=== PATIENT | female | born 1980 | race Caucasian/White ===

== ENCOUNTER 2017-01-20 03:22 | Emergency (ER) | payer BC ==
[2017-01-20] MEDS ORDERED: NORMAL SALINE 1000 ML 1,000 ML IV ONE ×2 (04:22→05:47)
[2017-01-20] MEDS ORDERED: ONDANSETRON HCL INJ/PF 4 MG/2 ML SDV IV ONE (04:22)
[2017-01-20] MEDS ORDERED: CLONIDINE 0.1 MG/24 HR PATCH.TDWK TD ONE (04:23)
--- NOTE | 2017-01-20 04:28 | ER Document Report ---
ED Psych Disorder / Suicide - General Chief Complaint: Psych Problem Stated Complaint: REQUEST DETOX Time Seen by Provider: 01/20/17 04:02 Mode of Arrival: Ambulatory Information source: Patient TRAVEL OUTSIDE OF THE [place] IN LAST 30 DAYS: No - HPI Notes: 36-year-old female who presents stating she is withdrawing from Percocet/ methadone. States she had been originally on Percocet for chronic back issues. She states she detoxed in [place] off this but walked out and did not complete the outpatient portion. She had been placed on methadone but has not had any since 4 or 5 days ago. She did use some Phenergan for nausea which helps slightly and she is almost out as well. She had been on a Catapres patch 0.1 mg from what it sounds like but this has been taken off as it has been old. She reports hot and cold sensation nausea clammy feeling and generalized pain. She has seen port but has not seen a physician yet for medication treatment. Denies any specific new symptoms otherwise. No suicidal ideation. No auditory or visual hallucinations. She does have generalized weakness and fatigue. No specific pain itself, more generalized. - Related Data Allergies/Adverse Reactions: Penicillins Allergy (Verified 01/20/17 03:26) Past Medical History - Social History Smoking Status: Current Every Day Smoker Frequency of alcohol use: Rare Drug Abuse: Prescription drugs Family History: Reviewed & Not Pertinent Patient has suicidal ideation: No Patient has homicidal ideation: No - Past Medical History Cardiac Medical History: Reports: Hx Hypercholesterolemia Renal/ Medical History: Denies: Hx Peritoneal Dialysis Other: Autoimmune disorder Past Surgical History: Reports: Hx Section - Immunizations Hx Diphtheria, Pertussis, Tetanus Vaccination: No Hx Pneumococcal Vaccination: 10/25/11 Review of Systems - Review of Systems -: Yes All other systems reviewed and negative Physical Exam - Vital signs Vitals: Temp Pulse Resp BP Pulse Ox 98.7 F 102 H 18 135/93 H 97 01/20/17 03:27 01/20/17 03:27 01/20/17 03:27 01/20/17 03:27 01/20/17 03:27 - Notes Notes: GENERAL: VS as per nursing doc. Well-appearing, well-nourished and in no acute distress. HEAD: Atraumatic, normocephalic EYES: Pupils equal round and reactive to light, extraocular movements intact, sclera anicteric, no conjunctival injection or discharge. ENT: Nares patent, oropharynx clear without exudates, slightly dry mucous membranes. NECK: Normal range of motion, supple without lymphadenopathy. LUNGS: Breath sounds clear to auscultation bilaterally and equal. No wheezes rales or rhonchi. HEART: Regular rate and rhythm without murmurs. Peripheral pulses equal. ABDOMEN: Soft, non-tender. BACK: Normal to inspection EXTREMITIES: Normal appearance without edema. NEUROLOGICAL: Cranial nerves grossly intact. Normal speech. Normal sensory and motor exams. No gross cerebellar abnormalities. PSYCH: Oriented 3. Calm, directable. No evidence of hallucinations or delusions. No reported suicidal or homicidal ideation. Normal thought content. Good insight. Speech is appropriate. SKIN: Slightly cool and moist no lacerations. Course - Vital Signs Vital signs: Temp Pulse Resp BP Pulse Ox 98.7 F 102 H 18 135/93 H 97 01/20/17 03:27 01/20/17 03:27 01/20/17 03:27 01/20/17 03:27 01/20/17 03:27
[2017-01-20 05:04] LABS: ABSOLUTE BASOPHILS # (AUTO) 0.1 10^3/uL (0.0-0.2); ABSOLUTE EOSINOPHILS # (AUTO) 0.1 10^3/uL (0.0-0.6); ABSOLUTE LYMPHOCYTES (AUTO) 2.4 10^3/uL (0.5-4.7); ABSOLUTE NEUT (AUTO) 9.6 10^3/uL (1.7-8.2); BASOPHILS % (AUTO) 0.5 % (0-2); EOSINOPHILS % (AUTO) 0.7 % (0-6); HEMATOCRIT 42.1 % (36.0-47.0); HEMOGLOBIN 14.1 g/dL (12.0-15.5); HGB HCT DIFFERENCE 0.2; LYMPHOCYTES % (AUTO) 18.3 % (13-45); MEAN CORPUSCULAR HEMOGLOBIN 31.1 pg (27.0-33.4); MEAN CORPUSCULAR HGB CONC 33.4 g/dL (32.0-36.0); MEAN CORPUSCULAR VOLUME 93 fl (80-97); MONOCYTES % (AUTO) 7.3 % (3-13); RED BLOOD COUNT 4.53 10^6/uL (3.72-5.28); RED CELL DISTRIBUTION WIDTH 13.9 % (11.5-14.0); SEGMENTED NEUTROPHILS % (AUTO) 73.2 % (42-78); WHITE BLOOD COUNT 13.1 10^3/uL (4.0-10.5)
[2017-01-20 05:17] LABS: ANION GAP 15 (5-19); BLOOD UREA NITROGEN 10 mg/dL (7-20); CALCIUM 9.5 mg/dL (8.4-10.2); CARBON DIOXIDE 26 mmol/L (22-30); CHLORIDE 106 mmol/L (98-107); CREATININE RESULT 0.61 mg/dL (0.52-1.25); GLUCOSE 109 mg/dL (75-110); SODIUM 146.8 mmol/L (137-145)
[2017-01-20 06:02] LABS: APPEARANCE,URINE CLOUDY; BILIRUBIN,URINE SMALL (NEGATIVE); CALCIUM OXALATE CRYSTALS,URINE MANY /HPF; GLUCOSE, URINE NEGATIVE (NEGATIVE); KETONES,URINE TRACE mg/dL (NEGATIVE); LEUKOCYTE ESTERASE,URINE TRACE (NEGATIVE); NITRITE,URINE NEGATIVE (NEGATIVE); PROTEIN,URINE 100 mg/dL (NEGATIVE); URINE SPECIFIC GRAVITY 1.029
[2017-01-20] MEDS ORDERED: NITROFURANTOIN MONOHYD/M-CRYST 100 MG CAPSULE PO ONE (06:08)
[2017-01-20 06:18] VITALS: BP 141/94
== END 2017-01-20 06:40 | disposition home or self-care (01) ==
LOC: ER 03:22
DX: F11.23 Opioid dependence with withdrawal (principal); N39.0 Urinary tract infection, site not specified; R11.0 Nausea; R53.1 Weakness; R53.83 Other fatigue; F17.200 Nicotine dependence, unspecified, uncomplicated
CPT/HCPCS: 99284; 96361; 96374; 36415; 85025; 81025; 80048; 81001; J2405; J7030; J3490; J8499

== ENCOUNTER 2018-03-19 13:42 | Emergency (ER) | payer BC ==
[2018-03-19 13:51] VITALS: BP 114/79
--- NOTE | 2018-03-19 13:59 | ER Document Report ---
ED Medical Screen (RME) - General Chief Complaint: Psych Problem Stated Complaint: PSYCH EVAL Time Seen by Provider: 03/19/18 13:57 Mode of Arrival: Ambulatory Information source: Patient TRAVEL OUTSIDE OF THE [place] IN LAST 30 DAYS: No - HPI Patient complains to provider of: psych issues Onset: Other - pt. states she is here to prove to her family that she's not crazy. Denies SI, HI - Related Data Allergies/Adverse Reactions: Penicillins Allergy (Verified 03/19/18 13:44) Past Medical History - Past Medical History Cardiac Medical History: Reports: Hx Hypercholesterolemia Renal/ Medical History: Denies: Hx Peritoneal Dialysis Past Surgical History: Reports: Hx Section - Immunizations Hx Diphtheria, Pertussis, Tetanus Vaccination: No Physical Exam - Vital signs Vitals: Temp Pulse Resp BP Pulse Ox 98.6 F 89 16 114/79 99 03/19/18 13:50 03/19/18 13:50 03/19/18 13:50 03/19/18 13:50 03/19/18 13:50 Course - Vital Signs Vital signs: Temp Pulse Resp BP Pulse Ox 98.6 F 89 16 114/79 99 03/19/18 13:50 03/19/18 13:50 03/19/18 13:50 03/19/18 13:50 03/19/18 13:50 Doctor's Discharge - Discharge Referrals: LETICIA SEGURA FNPJayC [Primary Care Provider] - Follow up as needed
[2018-03-19 14:42] LABS: ABSOLUTE BASOPHILS # (AUTO) 0.1 10^3/uL (0.0-0.2); ABSOLUTE EOSINOPHILS # (AUTO) 0.3 10^3/uL (0.0-0.6); ABSOLUTE LYMPHOCYTES (AUTO) 2.9 10^3/uL (0.5-4.7); ABSOLUTE MONOCYTES (AUTO) 0.7 10^3/uL (0.1-1.4); ABSOLUTE NEUT (AUTO) 6.3 10^3/uL (1.7-8.2); BASOPHILS % (AUTO) 0.7 % (0-2); EOSINOPHILS % (AUTO) 3.1 % (0-6); HEMATOCRIT 43.9 % (36.0-47.0); LYMPHOCYTES % (AUTO) 27.8 % (13-45); MEAN CORPUSCULAR HEMOGLOBIN 32.2 pg (27.0-33.4); MEAN CORPUSCULAR HGB CONC 34.1 g/dL (32.0-36.0); MEAN CORPUSCULAR VOLUME 95 fl (80-97); MONOCYTES % (AUTO) 6.5 % (3-13); PLATELET COUNT 273 10^3/uL (150-450); RED BLOOD COUNT 4.65 10^6/uL (3.72-5.28); RED CELL DISTRIBUTION WIDTH 14.1 % (11.5-14.0); SEGMENTED NEUTROPHILS % (AUTO) 61.9 % (42-78); TOTAL CELLS COUNTED % (AUTO) 100 %; WHITE BLOOD COUNT 10.3 10^3/uL (4.0-10.5)
[2018-03-19 14:50] LABS: APPEARANCE,URINE CLEAR; BILIRUBIN,URINE NEGATIVE (NEGATIVE); COLOR,URINE YELLOW; GLUCOSE, URINE NEGATIVE (NEGATIVE); KETONES,URINE NEGATIVE (NEGATIVE); LEUKOCYTE ESTERASE,URINE NEGATIVE (NEGATIVE); NITRITE,URINE NEGATIVE (NEGATIVE); PROTEIN,URINE NEGATIVE (NEGATIVE); URINE SPECIFIC GRAVITY 1.012; UROBILINOGEN,URINE NEGATIVE mg/dL (<2.0)
[2018-03-19 14:56] LABS: ALANINE AMINOTRANSFERASE 18 U/L (9-52); ALBUMIN 4.7 g/dL (3.5-5.0); ALKALINE PHOSPHATASE 62 U/L (38-126); ANION GAP 8 (5-19); ASPARTATE AMINO TRANSFERASE 17 U/L (14-36); BILIRUBIN,DIRECT 0.1 mg/dL (0.0-0.4); BILIRUBIN,TOTAL 0.2 mg/dL (0.2-1.3); BLOOD UREA NITROGEN 9 mg/dL (7-20); CALCIUM 9.5 mg/dL (8.4-10.2); CARBON DIOXIDE 26 mmol/L (22-30); CHLORIDE 107 mmol/L (98-107); GLUCOSE 72 mg/dL (75-110); POTASSIUM 3.9 mmol/L (3.6-5.0); SODIUM 141.2 mmol/L (137-145)
[2018-03-19 14:57] LABS: ALCOHOL < 10 mg/dL (NONE DETECTED)
[2018-03-19 15:04] LABS: URINE AMPHETAMINES SCREEN NEGATIVE; URINE BARBITURATES SCREEN NEGATIVE; URINE BENZODIAZEPINES SCREEN NEGATIVE; URINE COCAINE SCREEN NEGATIVE; URINE MARIJUANA (THC) SCREEN NEGATIVE; URINE METHADONE SCREEN NEGATIVE; URINE PHENCYCLIDINE SCREEN NEGATIVE
== END 2018-03-19 15:18 | disposition left against medical advice (07) ==
LOC: ER 13:42
DX: Z00.8 Encounter for other general examination (principal); Z88.0 Allergy status to penicillin; Z53.20 Procedure and treatment not carried out because of patient's decision for unspecified reasons
CPT/HCPCS: 36415; 80053; 80307; 81001; 81025; 84443; 85025; 99281

== ENCOUNTER 2019-02-23 11:07 | Outpatient (CLI) | payer SELFPAY ==
--- NOTE | 2019-02-23 11:45 | Non Stress Test Report ---
Non Stress Test Datetime Report Generated by CPN: 02/23/2019 11:44 DEMOGRAPHIC Test Number: 1 EGA NST: 38.1 INDICATION Indication for Study (NST) Other: AMA @ 38.1 weeks repeat NST VITAL SIGNS Temperature - NST: 98.0 Pulse - NST: 80 RESP - NST: 15 NBPSYS NST: 108 NBPDIA NST: 56 MONITORING Monitor Explained: Monitor Explained; Test Explained; Patient Verbalized Understanding Time on Monitor: 02/23/2019 11:17 Time off Monitor: 02/23/2019 11:38 NST Duration: 21 NST INTERVENTIONS NST Interventions: PO Hydration Physician Notified NST: NLilibeth Cortezon, CNM BABY A: [id number] BABY A Movement : Present Contraction Frequency : irregular FHR Baseline : 130 Accelerations : 15X15 Decelerations : None Variability : Moderate 6-25bpm NST Review: Meets Criteria for Reactive NST NST Review and Verified By : utry NST Results: Reactive NST REPORT Report Trigger: Send Report
== END 2019-02-23 11:42 | disposition home or self-care (01) ==
LOC: LC 11:07
PROVIDERS: ATTEND Student in an Organized Health Care Education/Training Program
PROC: 4A1HXCZ Monitoring of Products of Conception, Cardiac Rate, External Approach (ICD-10-PCS; principal; 2019-02-23)
DX: O09.523 Supervision of elderly multigravida, third trimester (principal); Z3A.38 38 weeks gestation of pregnancy
CPT/HCPCS: 59025

== ENCOUNTER 2019-02-26 14:52 | Outpatient (CLI) | payer SELFPAY ==
--- NOTE | 2019-02-26 15:39 | Non Stress Test Report ---
Non Stress Test Datetime Report Generated by CPN: 02/26/2019 15:38 DEMOGRAPHIC EGA NST: 38.4 INDICATION Indication for Study (NST) Other: AMA VITAL SIGNS Temperature - NST: 98.6 Pulse - NST: 97 RESP - NST: 18 NBPSYS NST: 112 NBPDIA NST: 62 MONITORING Monitor Explained: Monitor Explained; Test Explained; Patient Verbalized Understanding Time on Monitor: 02/26/2019 15:07 Time off Monitor: 02/26/2019 15:33 NST Duration: 26 NST INTERVENTIONS NST Interventions: PO Hydration NST Interventions: Reposition Patient Physician Notified NST: K Bedolla CNM BABY A: [id number] BABY A Movement : Present Contraction Frequency : irregular FHR Baseline : 135 Accelerations : 15X15 Decelerations : None Variability : Moderate 6-25bpm NST Review: Meets Criteria for Reactive NST NST Review and Verified By : RAFAELA BROOKS, JING NST Results: Reactive NST REPORT Report Trigger: Send Report
== END 2019-02-26 15:35 | disposition home or self-care (01) ==
LOC: LC 14:52
PROVIDERS: ATTEND Obstetrics & Gynecology
PROC: 4A1HXCZ Monitoring of Products of Conception, Cardiac Rate, External Approach (ICD-10-PCS; principal; 2019-02-26)
DX: O09.523 Supervision of elderly multigravida, third trimester (principal); Z3A.38 38 weeks gestation of pregnancy
CPT/HCPCS: 59025

== ENCOUNTER 2019-03-08 05:06 | Inpatient (IN) | payer BC ==
[2019-03-08 06:09] LABS: ABSOLUTE BASOPHILS # (AUTO) 0.1 10^3/uL (0.0-0.2); ABSOLUTE EOSINOPHILS # (AUTO) 0.4 10^3/uL (0.0-0.6); ABSOLUTE LYMPHOCYTES (AUTO) 1.9 10^3/uL (0.5-4.7); ABSOLUTE MONOCYTES (AUTO) 0.6 10^3/uL (0.1-1.4); ABSOLUTE NEUT (AUTO) 6.1 10^3/uL (1.7-8.2); BASOPHILS % (AUTO) 0.7 % (0-2); EOSINOPHILS % (AUTO) 4.3 % (0-6); HEMOGLOBIN 12.3 g/dL (12.0-15.5); MEAN CORPUSCULAR HEMOGLOBIN 30.6 pg (27.0-33.4); MEAN CORPUSCULAR HGB CONC 34.2 g/dL (32.0-36.0); MEAN CORPUSCULAR VOLUME 90 fl (80-97); MONOCYTES % (AUTO) 6.9 % (3-13); PLATELET COUNT 160 10^3/uL (150-450); RED BLOOD COUNT 4.03 10^6/uL (3.72-5.28); RED CELL DISTRIBUTION WIDTH 13.2 % (11.5-14.0); SEGMENTED NEUTROPHILS % (AUTO) 67.1 % (42-78); TOTAL CELLS COUNTED % (AUTO) 100 %
[2019-03-08] MEDS ORDERED: CEFAZOLIN 2 GM/D5W RTU 2 GM/50 ML RTUPB IV ONE (06:15)
[2019-03-08] MEDS ORDERED: RINGERS SOLUTION,LACTATED 1,000 ML IV ONE (06:45)
[2019-03-08] MEDS ORDERED: OXYTOCIN 10 UNIT/ML VIAL ONE (06:46)
[2019-03-08] MEDS ORDERED: FENTANYL CITRATE INJ/PF 100 MCG/2 ML AMPUL ONE (06:46)
[2019-03-08] MEDS ORDERED: MIDAZOLAM 2 MG/2 ML INJ ONE (06:47)
[2019-03-08] MEDS ORDERED: EPHEDRINE SULFATE INJ 50 MG/1 ML AMPULE ONE (06:47)
[2019-03-08] MEDS ORDERED: OXYTOCIN/NORMAL SALINE 20 UNIT/1,000 ML RTUINJ ONE (06:47)
[2019-03-08] MEDS ORDERED: ONDANSETRON HCL INJ/PF 4 MG/2 ML SDV ONE (06:47)
[2019-03-08] MEDS ORDERED: NALBUPHINE HCL INJ 10 MG/1 ML AMPULE ONE (06:48)
[2019-03-08] MEDS: RINGERS SOLUTION,LACTATED 1,000 ML IV PRN ×2 (07:00→09:05)
[2019-03-08] MEDS ORDERED: CEFAZOLIN INJ 1 GM VIAL ONE (07:26)
[2019-03-08] MEDS ORDERED: MEPERIDINE HCL/PF INJ 25 MG/1 ML DISP.SYRIN IV PRN (08:23)
[2019-03-08] MEDS ORDERED: PROMETHAZINE HCL INJ 25 MG/1 ML VIAL IV PRN ×2 (08:23→08:58)
[2019-03-08] MEDS ORDERED: DIPHENHYDRAMINE HCL 50 MG/ML VIAL IV PRN (08:23)
[2019-03-08] MEDS ORDERED: FENTANYL CITRATE INJ/PF 100 MCG/2 ML AMPUL IV PRN ×3 (08:23)
[2019-03-08] MEDS ORDERED: OXYCODONE-ACETAMINOPHEN 5-325 MG TABLET PO PRN (08:23)
[2019-03-08] MEDS ORDERED: OXYTOCIN/NORMAL SALINE 20 UNIT/1,000 ML RTUINJ IV PRN (08:58)
[2019-03-08] MEDS ORDERED: SIMETHICONE 80 MG TAB.CHEW PO PRN (08:58)
[2019-03-08] MEDS ORDERED: MEASLES,MUMPS&RUBELLA VACC/PF 0.5 ML VIAL SUBCUT PRN (08:58)
[2019-03-08] MEDS ORDERED: ACETAMINOPHEN 325 MG TABLET PO PRN (08:58)
[2019-03-08] MEDS ORDERED: DIPH/PERTUSS(ACELL)/TETANUS VAC/PF 0.5 ML SYR (>=10YO) IM PRN (08:58)
--- NOTE | 2019-03-08 09:02 | Operative Report ---
Operative Report DATE OF SURGERY: 03/08/19 PREOPERATIVE DIAGNOSIS: IUP at term prior section and desire for steri lization POSTOPERATIVE DIAGNOSIS: Same OPERATION: Repeat low transverse section delivery of a viable female and a bilateral tubal occlusion SURGEON: JACKIE CLARK ANESTHESIA: Spinal TISSUE REMOVED OR ALTERED: Placenta COMPLICATIONS: Multiple adhesions requiring multiple sutures for hemostasis ESTIMATED BLOOD LOSS: 3000 cc PROCEDURE: The patient was taken to the operating room where spinal anesthesia was obtained and found to be adequate. She was then prepped and draped in the normal sterile fashion and placed in the dorsal supine position with a leftward tilt. A Pfannenstiel skin incision was then made and carried through to the underlying layers of the fascia with the scalpel. The fascia was incised in the midline and the incision extended laterally with the Rubalcava scissors. The superior aspect of the fascial incision was then grasped with Ayaz clamps elevated and the underlying rectus muscles dissected off bluntly. Attention was then turned to the inferior aspect of the fascial incision which in a similar fashion was grasped, tented up with Lisa clamps, and the rectus muscles dissected off bluntly. The rectus muscles were then in the midline and the peritoneum at the amount identified and entered bluntly. The peritoneal incision was then extended superiorly and inferiorly with good visualization of the bladder. [The bladder blade was inserted and the vesicouterine peritoneum identified grasped with German pickups and entered sharply with the Metzenbaum scissors. His incision was then extended laterally with the Metzenbaum scissors and a bladder flap created digitally. The bladder blade was then reinserted and the lower uterine segment incised in a transverse fashion with the scalpel. The uterine incision was then extended bluntly. The bladder blade was removed and the infant's head was delivered from cephalic presentation atraumatically. The nose and mouth were suctioned and the cord doubly clamped and cut. And the was handed off to waiting pediatricians. The placenta was then delivered manully and the uterus exteriorized and cleared of all clots and debris. The uterine incision was then repaired with 1-0 Vicryl in a running locked fashion. A second layer of the same suture was used to obtain hemostasis via imbrication of the initial layer. Multiple sutures and use of [id number] sutures to control bleeding. Hemostasis was noted. The uterus was returned to the patient's abdomen. The gutters were cleared of all clots and debris. All operative sites were noted to be hemostatic. The fascia was reapproximated with 0 Vicryl in a running fashion from each lateral edge to the midline. The patient tolerated the procedure well. Sponge lap needle and instrument counts are correct -2. 2 g of Ancef were given prior to skin incision. The patient was taken to the recovery area awake and in stable condition.
--- NOTE | 2019-03-08 09:10 | Operative Report ---
Operative Report DATE OF SURGERY: 03/08/19 PREOPERATIVE DIAGNOSIS: IUP at term prior sections are sterilization POSTOPERATIVE DIAGNOSIS: Same OPERATION: Repeat low transverse liver viable female and bilateral tubal occlusion SURGEON: JACKIE CLARK ANESTHESIA: Spinal TISSUE REMOVED OR ALTERED: Placenta. Placenta PROCEDURE: Addendum to prior operative note following noted hemostasis of the uterus the right fallopian tube was occluded in the proximal portion with Filshie clips repeated on the left of tubes 10 5 to the fimbria are prior to and after occlusion. And then please see prior OR note
[2019-03-08] MEDS ORDERED: KETOROLAC TROMETHAMINE INJ/PF 30 MG/1 ML SDV ONE (10:03)
[2019-03-08 10:33] LABS: APPEARANCE,URINE CLOUDY; BILIRUBIN,URINE NEGATIVE (NEGATIVE); COLOR,URINE YELLOW; GLUCOSE, URINE NEGATIVE (NEGATIVE); KETONES,URINE NEGATIVE (NEGATIVE); LEUKOCYTE ESTERASE,URINE NEGATIVE (NEGATIVE); NITRITE,URINE NEGATIVE (NEGATIVE); PROTEIN,URINE NEGATIVE (NEGATIVE); URINE SPECIFIC GRAVITY 1.018; UROBILINOGEN,URINE NEGATIVE mg/dL (<2.0)
[2019-03-08 10:47] LABS: URINE AMPHETAMINES SCREEN NEGATIVE; URINE BARBITURATES SCREEN NEGATIVE; URINE BENZODIAZEPINES SCREEN NEGATIVE; URINE COCAINE SCREEN NEGATIVE; URINE MARIJUANA (THC) SCREEN NEGATIVE; URINE METHADONE SCREEN NEGATIVE; URINE PHENCYCLIDINE SCREEN NEGATIVE
[2019-03-08] MEDS ORDERED: KETOROLAC TROMETHAMINE INJ/PF 30 MG/1 ML SDV IV ONE (11:00)
[2019-03-08] MEDS: DOCUSATE SODIUM 100 MG CAPSULE PO SCH ×2 (11:15→17:17)
[2019-03-08] MEDS: PRENATAL VITAMIN W DHA CAPSULE PO SCH (11:15)
[2019-03-08] MEDS: MORPHINE SULFATE 10 MG/ML INJ IM PRN ×3 (12:06→21:45)
[2019-03-08] MEDS: OXYCODONE-ACETAMINOPHEN 5-325 MG TABLET PO PRN ×2 (13:54→18:06)
[2019-03-09] MEDS ORDERED: IBUPROFEN 800 MG TABLET ONE (01:54)
[2019-03-09] MEDS: OXYCODONE-ACETAMINOPHEN 5-325 MG TABLET PO PRN ×3 (02:02→12:51)
[2019-03-09 08:26] LABS: HEMATOCRIT 31.7 % (36.0-47.0); MEAN CORPUSCULAR HEMOGLOBIN 30.8 pg (27.0-33.4); MEAN CORPUSCULAR HGB CONC 34.6 g/dL (32.0-36.0); MEAN CORPUSCULAR VOLUME 89 fl (80-97); PLATELET COUNT 168 10^3/uL (150-450); RED BLOOD COUNT 3.57 10^6/uL (3.72-5.28); RED CELL DISTRIBUTION WIDTH 13.1 % (11.5-14.0); WHITE BLOOD COUNT 14.6 10^3/uL (4.0-10.5)
--- NOTE | 2019-03-09 09:17 | PDOC PROGRESS REPORT ---
Subjective-OB Progress Note for:: 03/09/19 Subjective: Doing well, no c/o, , eating well, voiding, hsb at BS, Physical Exam (OB) Vital Signs: Temp Pulse Resp BP Pulse Ox 98.7 F 78 16 123/73 98 03/09/19 07:28 03/09/19 07:28 03/09/19 07:28 03/09/19 07:28 03/09/19 07:28 Intake & Output 03/08/19 03/09/19 03/10/19 06:59 06:59 06:59 Intake Total 1635 1000 Output Total 2500 Balance -865 1000 Weight 81.65 kg - PIH/Pre-Eclampsia DTR's: 1 + Clonus: Negative Headache: Absent Epigastric Pain: No Visual Changes: No - Dressing Removed: No Incision: Dressing Closure Type: pressure - Lochia Lochia Amount: Scant < 10 ml Lochia Color: Rubra/Red - Abdomen Description: Soft, Round Hernia Present: No Fundal Description: Firm, Midline Fundal Height: u/u - u/2 Objective-Diagnostic Laboratory: 03/09/19 07:35 03/08/19 03/09/19 10:00 07:35 WBC 14.6 H RBC 3.57 L Hgb 11.0 L Hct 31.7 L MCV 89 MCH 30.8 MCHC 34.6 RDW 13.1 Plt Count 168 Urine Color YELLOW Urine Appearance CLOUDY Urine pH 7.0 Ur Specific [place] 1.018 Urine Protein NEGATIVE Urine Glucose (UA) NEGATIVE Urine Ketones NEGATIVE Urine Blood NEGATIVE Urine Nitrite NEGATIVE Ur Leukocyte Esterase NEGATIVE Urine WBC (Auto) 3 Urine RBC (Auto) 2 Assessment and Plan(PN) - Assessment and Plan (1) Status post repeat low transverse section Is this a current diagnosis for this admission?: Yes - Time Spent with Patient Time with patient: Less than 15 minutes Medications reviewed and adjusted accordingly: Yes - Disposition Anticipated Discharge: Home Within: within 24 hours
[2019-03-09] MEDS: PRENATAL VITAMIN W DHA CAPSULE PO SCH (09:22)
[2019-03-09] MEDS: DOCUSATE SODIUM 100 MG CAPSULE PO SCH ×2 (09:22→17:03)
[2019-03-09] MEDS: IBUPROFEN 800 MG TABLET PO SCH ×3 (12:49→23:35)
[2019-03-10] MEDS: IBUPROFEN 800 MG TABLET PO SCH ×2 (05:08→12:07)
[2019-03-10] MEDS: OXYCODONE-ACETAMINOPHEN 5-325 MG TABLET PO PRN (09:37)
[2019-03-10] MEDS: DOCUSATE SODIUM 100 MG CAPSULE PO SCH (09:37)
[2019-03-10] MEDS: PRENATAL VITAMIN W DHA CAPSULE PO SCH (09:37)
--- NOTE | 2019-03-10 09:56 | PDOC PROGRESS REPORT ---
Subjective-OB Progress Note for:: 03/10/19 Subjective: Doing well but is in pain, only taking Motrin, holding baby, hsb in room, ready to go home, Physical Exam (OB) Vital Signs: Temp Pulse Resp BP Pulse Ox 98.1 F 81 18 148/89 H 94 03/10/19 07:25 03/10/19 07:25 03/10/19 07:25 03/10/19 07:25 03/10/19 07:25 Intake & Output 03/09/19 03/10/19 03/11/19 06:59 06:59 06:59 Intake Total 1635 1730 Output Total 2500 Balance -865 1730 - PIH/Pre-Eclampsia DTR's: 1 + Clonus: Negative Headache: Absent Epigastric Pain: No Visual Changes: No - Dressing Removed: No Incision: Open, Well Approximated Closure Type: Surgical Glue - Lochia Lochia Amount: Scant < 10 ml Lochia Color: Rubra/Red - Abdomen Description: Tender, Soft, Round Hernia Present: No Fundal Description: Firm, Midline Fundal Height: u/u - u/2 Objective-Diagnostic Laboratory: 03/09/19 07:35 Assessment and Plan(PN) - Assessment and Plan (1) Status post repeat low transverse section Is this a current diagnosis for this admission?: Yes - Time Spent with Patient Time with patient: Less than 15 minutes Medications reviewed and adjusted accordingly: Yes - Disposition Anticipated Discharge: Home Within: within 24 hours
--- NOTE | 2019-03-10 10:02 | PDOC DISCHARGE SUMMARY ---
Impression - Admit/DC Date/PCP Admission Date/Primary Care Provider: 03/08/19 05:06 RENNY BARRERA MD Discharge Date: 03/10/19 - Discharge Diagnosis (1) Status post repeat low transverse section Is this a current diagnosis for this admission?: Yes - Additional Information Resuscitation Status: Full Code Discharge Diet: As Tolerated, Regular Discharge Activity: Activity As Tolerated, No Lifting Over 10 Pounds, No Lifting/Push/Pulling, Pelvic Rest, No tub bath Referrals: [facility] [Provider Group] (a 1 week) Prescriptions: Oxycodone HCl/Acetaminophen [Percocet 5-325 mg Tablet] 1 tab PO Q4HP PRN #20 tablet PRN Reason: Ibuprofen [Motrin 800 mg Tablet] 800 mg PO Q6 #60 tablet Home Medications: No122/Iron/Folic Acid [ Multi Tablet] 1 each PO DAILY 02/23/19 Albuterol Sulfate [Proair HFA Inhalation Aerosol 8.5 gm MDI] 2 puff PO QID PRN 03/06/19 Ibuprofen [Motrin 800 mg Tablet] 800 mg PO Q6 #60 tablet 03/10/19 Oxycodone HCl/Acetaminophen [Percocet 5-325 mg Tablet] 1 tab PO Q4HP PRN #20 tablet 03/10/19 HPI Gestational Age: 39 Reason(s) for Admission: Ceasarean Section-Repeat Procedures: Ultrasound Intrapartum Procedure(s): : Low Cervical, Transverse - female , home with mother Hospital Course Hospital Course: routine Results Laboratory Results: WBC 14.6 10^3/uL (4.0-10.5) H 03/09/19 07:35 RBC 3.57 10^6/uL (3.72-5.28) L 03/09/19 07:35 Hgb 11.0 g/dL (12.0-15.5) L 03/09/19 07:35 Hct 31.7 % (36.0-47.0) L 03/09/19 07:35 MCV 89 fl (80-97) 03/09/19 07:35 MCH 30.8 pg (27.0-33.4) 03/09/19 07:35 MCHC 34.6 g/dL (32.0-36.0) 03/09/19 07:35 RDW 13.1 % (11.5-14.0) 03/09/19 07:35 Plt Count 168 10^3/uL (150-450) 03/09/19 07:35 Lymph % (Auto) 21.0 % (13-45) 03/08/19 05:56 [place] % (Auto) 6.9 % (3-13) 03/08/19 05:56 Eos % (Auto) 4.3 % (0-6) 03/08/19 05:56 Baso % (Auto) 0.7 % (0-2) 03/08/19 05:56 Absolute Neuts (auto) 6.1 10^3/uL (1.7-8.2) 03/08/19 05:56 Absolute Lymphs (auto) 1.9 10^3/uL (0.5-4.7) 03/08/19 05:56 Absolute Monos (auto) 0.6 10^3/uL (0.1-1.4) 03/08/19 05:56 Absolute Eos (auto) 0.4 10^3/uL (0.0-0.6) 03/08/19 05:56 Absolute Basos (auto) 0.1 10^3/uL (0.0-0.2) 03/08/19 05:56 Seg Neutrophils % 67.1 % (42-78) 03/08/19 05:56 Urine Color YELLOW 03/08/19 10:00 Urine Appearance CLOUDY 03/08/19 10:00 Urine pH 7.0 (5.0-9.0) 03/08/19 10:00 Ur Specific [place] 1.018 03/08/19 10:00 Urine Protein NEGATIVE mg/dL (NEGATIVE) 03/08/19 10:00 Urine Glucose (UA) NEGATIVE mg/dL (NEGATIVE) 03/08/19 10:00 Urine Ketones NEGATIVE mg/dL (NEGATIVE) 03/08/19 10:00 Urine Blood NEGATIVE (NEGATIVE) 03/08/19 10:00 Urine Nitrite NEGATIVE (NEGATIVE) 03/08/19 10:00 Urine Bilirubin NEGATIVE (NEGATIVE) 03/08/19 10:00 Urine Urobilinogen NEGATIVE mg/dL (<2.0) 03/08/19 10:00 Ur Leukocyte Esterase NEGATIVE (NEGATIVE) 03/08/19 10:00 Urine WBC (Auto) 3 /HPF 03/08/19 10:00 Urine RBC (Auto) 2 /HPF 03/08/19 10:00 Squamous Epi Cells Auto 25 /HPF 03/08/19 10:00 Urine Mucus (Auto) RARE /LPF 03/08/19 10:00 Urine Ascorbic Acid NEGATIVE (NEGATIVE) 03/08/19 10:00 Urine Opiates Screen NEGATIVE 03/08/19 10:00 Urine Methadone Screen NEGATIVE 03/08/19 10:00 Ur Barbiturates Screen NEGATIVE 03/08/19 10:00 Ur Phencyclidine Scrn NEGATIVE 03/08/19 10:00 Ur Amphetamines Screen NEGATIVE 03/08/19 10:00 U Benzodiazepines Scrn NEGATIVE 03/08/19 10:00 Urine Cocaine Screen NEGATIVE 03/08/19 10:00 U Marijuana (THC) Screen NEGATIVE 03/08/19 10:00 Blood Type O POSITIVE 03/08/19 05:56 Antibody Screen NEGATIVE 03/08/19 05:56 Plan Health Concerns: pain management Plan of Treatment: take pain meds as needed, passing gas Goals: no complications Time Spent: Less than 30 Minutes
[2019-03-10 11:42] VITALS: BP 137/83
== END 2019-03-10 12:44 | disposition home or self-care (01) | DRG 784 ==
LOC: 2S 05:06
PROVIDERS: ADMIT Obstetrics & Gynecology Gynecology; ATTEND Obstetrics & Gynecology Gynecology
PROC: 0UL70CZ Occlusion of Bilateral Fallopian Tubes with Extraluminal Device, Open Approach (ICD-10-PCS; 2019-03-08)
PROC: 10D00Z1 Extraction of Products of Conception, Low, Open Approach (ICD-10-PCS; principal; 2019-03-08 07:45)
DX: O34.211 Maternal care for low transverse scar from previous cesarean delivery (principal); O98.513 Other viral diseases complicating pregnancy, third trimester; N85.8 Other specified noninflammatory disorders of uterus; O99.333 Smoking (tobacco) complicating pregnancy, third trimester; F17.210 Nicotine dependence, cigarettes, uncomplicated; B00.9 Herpesviral infection, unspecified; Z3A.39 39 weeks gestation of pregnancy; Z37.0 Single live birth; Z30.2 Encounter for sterilization; Z79.899 Other long term (current) drug therapy
CPT/HCPCS: 1961; 36415; 80307; 81001; 85025; 85027; 86850; 86900; 86901; 94799; J1885; J2250; J2270; J2300; J2405; J2590; J3010; J3490; J7120